=== PATIENT | male | born 1975 | race Caucasian/White ===

== ENCOUNTER → 2018-07-10 | Outpatient (REF) | payer BC ==
[2018-07-10 19:15] LABS: APPEARANCE, URINE CLEAR (CLEAR); BACTERIA, URINE AUTO NEGATIVE (NEGATIVE); BILIRUBIN, URINE AUTO NEGATIVE (NEGATIVE); BLOOD, URINE BLOOD NEGATIVE (NEGATIVE); COLOR, URINE YELLOW (YELLOW); GLUCOSE, URINE (UA) AUTO NEGATIVE (NEGATIVE); KETONE, URINE AUTO NEGATIVE (NEGATIVE); LEUKOCYTE ESTERASE, URINE AUTO NEGATIVE (NEGATIVE); MUCUS, URINE SMALL (NEGATIVE); NITRITE, URINE AUTO NEGATIVE (NEGATIVE); PROTEIN, URINE AUTO NEGATIVE (NEGATIVE); RBC, URINE AUTO 1 /HPF (0-3); SPECIFIC GRAVITY URINE AUTO 1.021 (1.002-1.035); SQUAMOUS EPITHELIAL CELL UR AU 0 /HPF (0-6); UROBILINOGEN, URINE AUTO 0.2 mg/dL (0.0-2.0); WBC, URINE AUTO 1 /HPF (0-3)
== END ==
LOC: M SMT 17:26
DX: R31.9 Hematuria, unspecified (principal)
CPT/HCPCS: 81001

== ENCOUNTER 2025-04-10 06:59 | Day surgery (SDC) | payer BC ==
[~2025-04-10] VITALS: Ht 172.7 cm; Wt 86.2 kg
[~2025-04-10 06:59] MED LIST: ATOR1TAB19 PO; CITA20TA6 PO; FIBE625T PO; GNP1000T11 PO; L. A1TAB6 PO; LORA-754 PO; MAGN400T2 PO; PANT20TA6 PO; VITA100093 PO; [UNRECOGNIZED DRUG - CODE] PO
[2025-04-10] MEDS ORDERED: LIDOCAINE 2% INJ 100 MG/5 ML SYRINGE As Ordered ONE (09:13)
[2025-04-10 09:45] VITALS: BP 123/72; TEMP 98.2; O2SAT 96
== END 2025-04-10 09:54 | disposition home or self-care (01) ==
LOC: M OPP 06:59
PROVIDERS: ATTEND Surgery
DX: Z12.11 Encounter for screening for malignant neoplasm of colon (principal); K63.5 Polyp of colon; Z79.899 Other long term (current) drug therapy